=== PATIENT | female | born 1970 | race Caucasian/White ===

== ENCOUNTER 2016-10-29 09:37 | Emergency (ER) | payer BC ==
--- NOTE | ~2016-10-29 | CR94 ---
[facility] A Service of [facility] RADIOLOGY TEXT RESULTS PATIENT: NATALIA COLEMAN LOCATION: SED : 68 UNIT #: [id number] AGE: [address]: Trell Jara MD SEX: F ORDER DR: [id number] [address] [address] [id number] E MR#: [id number] Acc #: [id number] NAME: NATALIA COLEMAN : 1970 SEX: F STUDY DATE/TIME: 10/29/2016 9:57 UNIT: SED ROOM: STUDY DESCRIPTION: CR Elbow Min 3 Views Rt Attending Physician: Trell Jara M.D. Ordering Physician: Trell Jara M.D. Primary Care Physician: Tomeka Randolph M.D. MEDICAL IMAGING REPORT This report is preliminary unless electronic signature is present. EXAM Right elbow series, 10/29/2016 HISTORY Elbow pain from overuse. Began two weeks ago. [place] a pop last night cleaning scrubbing overuse. FINDINGS AP, lateral and oblique radiographs of the right elbow show normal bony mineralization. No traumatic fracture or malalignment. No joint effusion. No soft tissue defect, subcutaneous air or radiodense foreign body. If the patient's symptoms persist, and if it would assist in management, elbow could be further evaluated with cross-sectional imaging such as MRI. Dictated by... Kelvin Martinez M.D. THIS IS AN ELECTRONICALLY VERIFIED REPORT Kelvin Martinez M.D. at 10/30/2016 9:39 PM Maureen TD: 10/29/2016 10:37 JOB #: [id number] MEDICAL IMAGING REPORT Page 1 of 1
[~2016-10-29 09:37] MED LIST: BACTRIM DS TABL1 TAB PO; PRILOSEC PO; VICODIN 5/500 T1 TAB PO
[2016-10-29] MEDS ORDERED: NEXIUM PO (09:44)
== END 2016-10-29 10:46 | disposition home or self-care (01) ==
LOC: SED 09:37
DX: S56.811A Strain of other muscles, fascia and tendons at forearm level, right arm, initial encounter (principal); F17.210 Nicotine dependence, cigarettes, uncomplicated; X58.XXXA Exposure to other specified factors, initial encounter; Y92.009 Unspecified place in unspecified non-institutional (private) residence as the place of occurrence of the external cause
CPT/HCPCS: 73080; 99283